=== PATIENT | female | born 1995 | race Asian ===

== ENCOUNTER 2017-10-27 22:27 | Emergency (ER) | payer OTHER ==
[~2017-10-27] VITALS: Ht 193 cm; Wt 60.2 kg
[2017-10-27 22:30] VITALS: TEMP 36.8; Ht 193 cm; Wt 60.2 kg
[2017-10-27 23:10] LABS: BASO % 0.2 %; BASO ABS # 0.01 K/uL (0-0.2); EOS % 1.7 %; EOS ABS # 0.08 K/uL (0-0.5); HEMATOCRIT 40.4 % (37-47); HEMOGLOBIN 13.6 g/dL (12.0-16.0); IG# 0.01 K/uL (0.00-0.02); LYMPH % 29.9 %; LYMPH ABS # 1.44 K/uL (1.2-3.4); MEAN CELL VOLUME 91.4 fL (80-100); MEAN CORPUSCULAR HEMOGLOBIN 30.8 pg (25-34); MEAN CORPUSCULAR HGB CONC 33.7 g/dl (32-36); MEAN PLATELET VOLUME 11.1 fL (7.4-10.4); MONO % 7.9 %; MONO ABS # 0.38 K/uL (0.11-0.59); NEUT % 60.1 %; PLATELET COUNT 184 K/uL (130-400); RED CELL DISTRIBUTION WIDTH CV 12.7 % (11.5-14.5); RED CELL DISTRIBUTION WIDTH SD 42.6 fL (36.4-46.3); WHITE BLOOD COUNT 4.82 K/uL (4.8-10.8)
[2017-10-27 23:20] LABS: PTT PATIENT 30.1 SECONDS (21.0-31.0)
[2017-10-27 23:34] LABS: ALBUMIN 4.5 gm/dl (3.4-5.0); CALCIUM 9.2 mg/dl (8.5-10.1); CREATININE 0.73 mg/dl (0.60-1.20); POTASSIUM 3.4 mmol/L (3.5-5.1); TOTAL PROTEIN 8.8 gm/dl (6.4-8.2)
[2017-10-27] MEDS ORDERED: SODIUM CHLORIDE 0.9% 1000ML 1,000 ML IV STA (23:47)
--- NOTE | 2017-10-28 01:00 | EMERGENCY ROOM VISIT NOTE ---
History First contact with patient: 22:39 Chief Complaint: RASH Stated Complaint: RASH History of Present Illness The patient is a 22 year old female who is otherwise healthy who presents to the Emergency Room via private vehicle with complaints of "rash". The patient notes that she is a student here [employer], and recently came to the area from [place] 4 days ago. She notes that she began with a rash on the face last evening , and then went down her chest and now on her extremities including her feet. She also notes that it is on her palms. She went to the [facility] around noontime today. She states that she had blood work drawn. She is unsure what exactly was drawn. She notes that she was given 2 medications in the event this was an allergic reaction. She denies any close contacts. She denies any current fevers, chills, nausea, vomiting, abdominal pain, headache, neck pain. She notes that she did have a fever 3 days ago. She also notes that she had a sore throat a few weeks ago which she was treated with a cephalosporin for 3 days in [place]. Review of Systems A complete 10-point Review of Systems was discussed with the patient, with pertinent positives and negatives listed in the History of Present Illness. All remaining Review of Systems questions can be considered negative unless otherwise specified. Past Medical/Surgical History No pertinent. Family History No pertinent. Social History Smoking Status: Never Smoker Patient is a student here [employer] and is from [place]. Current/Historical Medications No Active Prescriptions or Reported Meds Physical Exam Vital Signs Date Time Temp Pulse Resp B/P (MAP) Pulse Ox O2 Delivery O2 Flow Rate FiO2 10/28/17 01:53 78 16 114/72 97 Room Air 10/27/17 22:30 36.8 81 16 123/83 97 Room Air Physical Exam VITAL SIGNS - Vital signs and nursing notes were reviewed. Stable. Afebrile. GENERAL -22-year-old female appearing her stated age who is in no acute distress. She is nontoxic in appearance. Communicates well with provider and answers questions appropriately. SKIN -there are diffuse, subcentimeter in diameter slightly raised erythematous regions throughout the entire body. This is most concentrated on the face. This extends down the neck, onto the chest, abdomen, back, and extremities. It does involve the palms of the hands. There is no vesicular-like region. No drainage. No skin sloughing externally. HEAD - NC/AT. EYES - PERRL with EOMI bilaterally. Sclera anicteric. EARS - No deformities of external structures noted on gross examination bilaterally. External auditory canals without discharge or otorrhea. Tympanic membranes pearly sheikh without retraction or bulging. No fluid or purulent material visualized behind the TM. Handle of malleus, umbo, cone of light, pars tensa/flaccid all easily visualized. NOSE - Midline and without cyanosis. No epistaxis or purulent drainage noted. MOUTH/OROPHARYNX - Without perioral cyanosis. Buccal mucosa pink and moist and without leukoplakia. No [place] spots. No tonsillar hypertrophy. Minimal erythema of the posterior pharynx but otherwise within normal limits. Airway is widely patent. The patient does experience/display what is either a geographic tongue or changes in the surface on the tongue. The right side of the tongue is the normal color with the left side being more whitish in nature. NECK - Neck with FROM. Supple to palpation. No lymphadenopathy noted. No nuchal rigidity. LUNGS - Chest wall symmetric without accessory muscle use, intercostals retractions, or central cyanosis. Normal vesicular breath sounds CTA B/L. No wheezes, rales, or rhonchi appreciated. CARDIAC - RRR with S1/S2. No murmur, rubs, or gallops appreciated. ABDOMEN - Abdominal contour normal without pulsations or visible masses. BS normoactive all four quadrants. No tenderness, palpable masses, hepatosplenomegaly, or ascites noted. EXTREMITIES - No clubbing or peripheral cyanosis. No pretibial edema present. +5 /5 strength noted in UE/LE bilaterally. NEUROLOGIC - Cranial nerves II through XII grossly intact. Sensory intact to light touch throughout. PSYCH - A&Ox3 and cooperates fully with examiner. Pt is very pleasant and interacts well with examiner. Medical Decision & Procedures Laboratory Results 10/27/17 23:00 Red Blood Count 4.42, Mean Corpuscular Volume 91.4, Mean Corpuscular Hemoglobin 30.8, Mean Corpuscular Hemoglobin Concent 33.7, Mean Platelet Volume 11.1, Neutrophils (%) (Auto) 60.1, Lymphocytes (%) (Auto) 29.9, Monocytes (%) (Auto) 7.9, Eosinophils (%) (Auto) 1.7, Basophils (%) (Auto) 0.2, Neutrophils # (Auto) 2.90, Lymphocytes # (Auto) 1.44, Monocytes # (Auto) 0.38, Eosinophils # (Auto) 0.08, Basophils # (Auto) 0.01 10/27/17 23:00 Test 10/27/17 23:00 10/28/17 00:10 White Blood Count 4.82 K/uL (4.8-10.8) Red Blood Count 4.42 M/uL (4.2-5.4) Hemoglobin 13.6 g/dL (12.0-16.0) Hematocrit 40.4 % (37-47) Mean Corpuscular Volume 91.4 fL (80-100) Mean Corpuscular Hemoglobin 30.8 pg (25-34) Mean Corpuscular Hemoglobin Concent 33.7 g/dl (32-36) Platelet Count 184 K/uL (130-400) Mean Platelet Volume 11.1 fL (7.4-10.4) Neutrophils (%) (Auto) 60.1 % Lymphocytes (%) (Auto) 29.9 % Monocytes (%) (Auto) 7.9 % Eosinophils (%) (Auto) 1.7 % Basophils (%) (Auto) 0.2 % Neutrophils # (Auto) 2.90 K/uL (1.4-6.5) Lymphocytes # (Auto) 1.44 K/uL (1.2-3.4) Monocytes # (Auto) 0.38 K/uL (0.11-0.59) Eosinophils # (Auto) 0.08 K/uL (0-0.5) Basophils # (Auto) 0.01 K/uL (0-0.2) RDW Standard Deviation 42.6 fL (36.4-46.3) RDW Coefficient of Variation 12.7 % (11.5-14.5) Immature Granulocyte % (Auto) 0.2 % Immature Granulocyte # (Auto) 0.01 K/uL (0.00-0.02) Prothrombin Time 10.9 SECONDS (9.0-12.0) Prothromb Time International Ratio 1.0 (0.9-1.1) Activated Partial Thromboplast Time 30.1 SECONDS (21.0-31.0) Partial Thromboplastin Ratio 1.2 Anion Gap 8.0 mmol/L (3-11) Est Creatinine Clear Calc Drug Dose 116.8 ml/min Estimated GFR () 137.4 Estimated GFR (Non- 118.6 BUN/Creatinine Ratio 12.7 (10-20) Calcium Level 9.2 mg/dl (8.5-10.1) Magnesium Level 2.4 mg/dl (1.8-2.4) Total Bilirubin 0.9 mg/dl (0.2-1) Aspartate Amino Transf (AST/SGOT) 18 U/L (15-37) Alanine Aminotransferase (ALT/SGPT) 17 U/L (12-78) Alkaline Phosphatase 68 U/L (45-117) Total Protein 8.8 gm/dl (6.4-8.2) Albumin 4.5 gm/dl (3.4-5.0) Globulin 4.3 gm/dl (2.5-4.0) Albumin/Globulin Ratio 1.0 (0.9-2) Monoscreen NEG (NEG) Urine Color DK YELLOW Urine Appearance CLOUDY (CLEAR) Urine pH 5.0 (4.5-7.5) Urine Specific [place] 1.022 (1.000-1.030) Urine Protein NEG (NEG) Urine Glucose (UA) NEG (NEG) Urine Ketones 3+ (NEG) Urine Occult Blood NEG (NEG) Urine Nitrite NEG (NEG) Urine Bilirubin NEG (NEG) Urine Urobilinogen NEG (NEG) Urine Leukocyte Esterase NEG (NEG) Urine WBC (Auto) 1-5 /hpf (0-5) Urine RBC (Auto) 0-4 /hpf (0-4) Urine Hyaline Casts (Auto) 1-5 /lpf (0-5) Urine Epithelial Cells (Auto) 10-20 /lpf (0-5) Urine Bacteria (Auto) NEG (NEG) Urine Test NEG (NEG) Medications Administered Medications (Trade) Dose Ordered Sig/Ritchie Route Start Time Stop Time Status Last Admin Dose Admin Sodium Chloride 1,000 ml @ 999 mls/hr Q1H1M STAT IV 10/27/17 23:47 10/28/17 00:47 DC 10/27/17 23:47 999 MLS/HR Medical Decision Patient was seen and evaluated as above in room B8. Review was performed of nursing notes and vital signs. After obtaining a thorough history and physical examination the above work up was performed. She presents to us today with a rash. This is likely either measles, chickenpox, or mumps. I would favor this to be measles. She does not seem to have any of the eyes/runny nose involvement. She has no fever here. She is nontoxic on examination is able to communicate well and ambulate without difficulty. She is nontoxic in appearance. I suspect that this will likely pass without difficulty. I did elect to obtain testing for mumps and measles here as I am unsure what was all obtained at [facility]. She is to follow-up with them on Sunday she notes she has a follow-up. She is to quarantine essentially herself and separate herself from others until she sees the Sunday. Testing currently pending. She was given fluids here. I believe the ketones in the urine are likely from not eating/drinking much today. I do not suspect toxic shock syndrome, scalded skin syndrome, strep as her strep test here was negative, or any other emergent process. No evidence of meningitis or encephalitis. No evidence of sepsis. CBC reveals no concerning leukocytosis or anemia. Mild hypokalemia. She is to supplement with foods high in potassium. She is to return with worsening. Case discussed with the attending physician. The patient was educated upon management, educated upon todays findings/results, educated upon symptoms in which to return, had questions answered prior to discharge, and was discharged home in good condition. In the evaluation and treatment of this patient the following differential diagnoses were entertained: Measles, mumps, rubella, sepsis, toxic shock syndrome, scalded skin syndrome, allergic reaction, among others. Impression Primary Impression: Rash Additional Impression: Hypokalemia Departure Information Dispostion Home / Self-Care Condition GOOD Prescriptions No Active Prescriptions or Reported Meds Referrals [facility] (PCP) Patient Instructions Hypokalemia Alex, My [facility] Additional Instructions You were seen in the emergency department for rash. At this time I suspect this is either measles or mumps. Please wear the mask to cover your mouth at all times. Please rest and stay well-hydrated. Please do not go out into public, or exposure self to other individuals as this is quite contagious. I do recommend resting in your room and following up Sunday with [facility] as we discussed. Your testing results will take quite some time to return. Please return here with any increased fever, headache, neck pain or new/ concerning symptoms. Problem Qualifiers
[2017-10-28 01:53] VITALS: BP 114/72; PULSE 78; O2SAT 97
== END 2017-10-28 01:58 | disposition home or self-care (01) ==
LOC: C.EDB 22:29
DX: R21 Rash and other nonspecific skin eruption (principal); E87.6 Hypokalemia